=== PATIENT | female | born 1965 | race Caucasian/White ===

== ENCOUNTER → 2016-09-15 | Outpatient (CLI) | payer OTHER ==
[~2016-09-15] MED LIST: DOCU1CAP39 PO; HYDR-3516 PO; IBUP-232 PO; LORTA5 PO; MAXZTAB PO; PRIL20TA2 PO; Z.0.NO CURRENT MEDS; ZOFR4TAB3 SL
[2016-09-15 10:32] LABS: AUTOMATED NEUTROPHIL # 5.1 TH/MM3 (1.8-7.7); BASOPHIL # 0.1 TH/MM3 (0-0.2); BASOPHIL % 0.7 % (0.0-2.0); EOSINOPHIL # 0.3 TH/MM3 (0-0.4); EOSINOPHIL % 3.1 % (0.0-4.0); HEMATOCRIT 35.6 % (35.0-46.0); HEMO FLAGS DIFF FINAL; LYMPH % 31.4 % (9.0-44.0); LYMPHOCYTE # 2.9 TH/MM3 (1.0-4.8); MEAN CORPUSCULAR HEMOGLOBIN 29.5 PG (27.0-34.0); MEAN CORPUSCULAR HGB CONC 33.9 % (32.0-36.0); MONO % 8.3 % (0.0-8.0); NEUT % 56.5 % (16.0-70.0); PLATELET COUNT 278 TH/MM3 (150-450); RED BLOOD COUNT 4.09 MIL/MM3 (4.00-5.30); WHITE BLOOD COUNT 9.1 TH/MM3 (4.0-11.0)
[2016-09-15 10:37] LABS: BLOOD, URINE SMALL (NEG); GLUCOSE,URINE NEG (NEG); KETONE, URINE NEG (NEG); NITRITE,URINE NEG (NEG); PH, URINE 6.5 (5.0-8.5); URINE COLOR YELLOW (YELLW/STRAW)
[2016-09-15 12:04] LABS: BICARBONATE 25.2 MEQ/L (21.0-32.0); POTASSIUM 3.4 MEQ/L (3.5-5.1)
--- NOTE | 2016-09-16 14:01 | EKG ---
Date Performed: 09/15/2016 Time Performed: 10:17:37 PTAGE: 51 years EKG: Sinus rhythm POSSIBLE LEFT ATRIAL ENLARGEMENT Since previous tracing, no significant change noted BORDERLINE ECG PREVIOUS TRACING : 05/01/2011 11.00.30 DOCTOR: Stefan Hussein Interpretating Date/Time 09/16/2016 13:59:32
== END ==
LOC: CPRE 09:53
PROVIDERS: ATTEND Obstetrics & Gynecology
DX: Z01.812 Encounter for preprocedural laboratory examination (principal); Z01.810 Encounter for preprocedural cardiovascular examination; N92.0 Excessive and frequent menstruation with regular cycle; D21.9 Benign neoplasm of connective and other soft tissue, unspecified; R94.31 Abnormal electrocardiogram [ECG] [EKG]
CPT/HCPCS: 80048; 81003; 84703; 85025; 86850; 86900; 86901; 93005

== ENCOUNTER 2016-09-16 05:58 | Observation (INO) | payer OTHER ==
[~2016-09-16] VITALS: Ht 167.6 cm; Wt 83.7 kg
[~2016-09-16 05:58] MED LIST changes: -DOCU1CAP39 PO; -HYDR-3516 PO; -IBUP-232 PO; -LORTA5 PO; -Z.0.NO CURRENT MEDS; -ZOFR4TAB3 SL
[2016-09-16] MEDS ORDERED: CLINDAMYCIN 600 MG/NS 100 ML IV SCH ×2 (06:15)
[2016-09-16] MEDS ORDERED: GENTAMICIN 80 MG PREMIX 100 ML IV SCH (06:15)
[2016-09-16] MEDS ORDERED: INSULIN HUMAN REGULAR 1,000 UNITS/10 ML VIAL SQ PRN (06:30)
[2016-09-16] MEDS ORDERED: CHLORHEXIDINE GLUCONATE 2 % 1 PACK (2 CLOTHS) TOPICAL PRN (06:30)
[2016-09-16] MEDS ORDERED: POVIDONE IODINE 5% (ANTISEPSIS KIT) 4 APPLICATIONS EACH NARE PRN (06:30)
[2016-09-16] MEDS ORDERED: SODIUM CHLORID 0.9% 500 ML IV PRN (06:30)
[2016-09-16] MEDS ORDERED: METOPROLOL TARTRATE 25 MG TAB PO PRN (06:30)
[2016-09-16 06:39] VITALS: BP 135/90; PULSE 78; RESP 18; TEMP 98.5; O2SAT 97
[2016-09-16] MEDS: LACTATED RINGER'S 1000 ML IV PRN ×2 (06:42→12:26)
[2016-09-16] MEDS ORDERED: SODIUM CHLORIDE 0.9% INJ 100 ML ONE (06:48)
[2016-09-16] MEDS ORDERED: APREPITANT 40 MG CAP ONE (07:05)
[2016-09-16] MEDS ORDERED: DEXAMETHASONE SOD PHOS 4 MG/ML VIAL ONE (07:07)
[2016-09-16] MEDS ORDERED: SCOPOLAMINE 1.5 MG PATCH ONE (07:10)
[2016-09-16] MEDS ORDERED: MIDAZOLAM HCL 2 MG/2 ML VIAL ONE (07:16)
[2016-09-16] MEDS ORDERED: diphenhydrAMINE HCL 50 MG/ML VIAL ONE (07:18)
[2016-09-16] MEDS ORDERED: BUPIVACAINE/EPINEPHRINE 0.25% PF 30 ML VIAL INFIL ONE (08:30)
[2016-09-16] MEDS ORDERED: IBUPROFEN 600 MG TAB PO PRN (09:45)
[2016-09-16] MEDS ORDERED: diphenhydrAMINE HCL 50 MG/ML VIAL IV PRN (09:45)
[2016-09-16] MEDS ORDERED: NALOXONE HCL 0.4 MG/ML AMP IV PRN (09:45)
[2016-09-16] MEDS ORDERED: ZOLPIDEM TARTRATE 5 MG TAB PO PRN (09:45)
[2016-09-16] MEDS ORDERED: SODIUM CHLORIDE 0.9% FLUSH 10 ML FLUSH IV FLUSH PRN (09:45)
[2016-09-16] MEDS ORDERED: ONDANSETRON HCL 4 MG/2 ML VIAL IVP PRN (09:45)
[2016-09-16] MEDS: LACTATED RINGER'S 1000 ML INJ 1,000 ML IV SCH ×2 (10:00→18:05)
[2016-09-16] MEDS ORDERED: DO NOT ADM ANY ANTICOAGULANT DRUGS PRN (10:01)
[2016-09-16] MEDS ORDERED: fentaNYL CITRATE 250 MCG/5 ML AMP ONE (10:09)
[2016-09-16] MEDS: DOCUSATE SODIUM 100 MG CAP PO SCH ×2 (10:15→20:09)
[2016-09-16] MEDS: HYDROmorphone HCL PCA 6 MG/30 ML IV SCH (10:21)
[2016-09-16] MEDS ORDERED: *ONDANSETRON 4 MG VIAL PERIprocedural Use ONLY ONE (10:30)
[2016-09-16] MEDS ORDERED: DIMETHICONE/OXYBENZONE/PADMIATE LIP BALM 4.25 GM TOPICAL ONE (10:50)
[2016-09-16] MEDS ORDERED: KETOROLAC TROMETHAMINE 60 MG/2 ML (IM) VIAL IM ONE (12:00)
[2016-09-16] MEDS ORDERED: ONDANSETRON HCL 4 MG/2 ML VIAL IV PUSH ONE (12:00)
[2016-09-16] MEDS ORDERED: PROPOFOL 200 MG/20 ML AMP IV ONE (12:00)
[2016-09-16] MEDS ORDERED: NEOSTIGMINE 3 MG/3 ML SYR IV ONE (12:00)
[2016-09-16] MEDS ORDERED: LACTATED RINGER'S 1000 ML INJ 1,000 ML IV ONE (12:00)
[2016-09-16 12:30] VITALS: BP 109/63; PULSE 86; RESP 20; TEMP 97.9; O2SAT 96
[2016-09-16] MEDS: PCA - TOTAL MG DILAUDID DELIVERED PER SHIFT OTHER SCH ×2 (13:43→23:12)
[2016-09-16 16:00] VITALS: BP 107/63; PULSE 90; RESP 18; TEMP 97.1; O2SAT 96
--- NOTE | 2016-09-16 17:58 | MP ---
cc: SANDRA STEWARD (fax please [phone]) DATE OF SURGERY 09/16/16 PREOPERATIVE DIAGNOSIS Menorrhagia, pelvic pain, fibroid uterus. POSTOPERATIVE DIAGNOSIS Menorrhagia, pelvic pain, fibroid uterus. PROCEDURE 1. Examination under anesthesia, 2. Laparoscopic-assisted vaginal hysterectomy, bilateral salpingectomy, 3. Cystoscopy. SURGEON Dr. Merlyn Steward BUSINESS MACHINE OPERATOR [employer] Muniz ANESTHESIA General endotracheal anesthesia, Dr. Boone. FLUIDS 1000 mL crystalloid ESTIMATED BLOOD LOSS 100 mL URINE OUTPUT 700 mL clear yellow at the end of the procedure. FINDINGS Uterus was approximately 12 weeks on examination under anesthesia. There were no adnexal masses. At laparoscopy, the ovaries appeared normal. PROCEDURE IN DETAIL The patient was taken to the operating room where general anesthesia was found to be adequate. She was then prepped and draped in the normal sterile fashion in the dorsal lithotomy position. A Hernandez catheter was inserted into the urinary bladder using sterile technique. A weighted speculum was placed in the vagina. A Single-tooth tenaculum was applied to the anterior lip of the cervix. A suture was placed through the anterior lip of the cervix and the tenaculum was removed. A medium V-Care uterine manipulator was placed through the cervix. The balloon was inflated. The cups were positioned. The speculum was removed. The gloves were changed and attention was turned to the abdominal portion of the procedure. A 5 mm incision was made just above the umbilicus and a 5-mm trocar and camera were inserted into the abdominal cavity under direct visualization. The abdomen was insufflated with approximately 3.5 liters of CO2 gas. Two 5 mm trocars were placed in the right and left lower quadrants under direct visualization. The left round ligament was identified, grasped with the Harmonic scalpel and transected. The bladder flap was created from the left side using the harmonic scalpel. The right round ligament was identified, grasped with the Harmonic scalpel, transected and the bladder flap was created from the right side using the harmonic scalpel. The bladder was then gently dissected off the anterior surface of the uterus and cervix. The fallopian tubes were then transected from the broad ligaments using the harmonic scalpel. The utero-ovarian ligaments were transected using the harmonic scalpel. The right broad ligament, cardinal ligament and uterine artery were then transected using the harmonic scalpel. The left broad ligament, cardinal ligament and uterine arteries were transected using the Harmonic scalpel down to the level of cervix. The V-Care was used as a guide to incise the anterior vaginal mucosa. This incision was extended circumferentially using the harmonic scalpel and hemostasis was noted from all of the pedicles. Suction irrigation was performed. The specimen was removed vaginally and sent to pathology. The vaginal cuff was then closed vaginally with a running suture of 0 Vicryl. Hemostasis was assured. The instruments were removed from the abdominal cavity by the librarian assistant. The trocars were removed. The skin incisions were closed with 4-0 Monocryl. The Hernandez catheter was used to instill approximately 350 mL of saline into the bladder. The Hernandez catheter was removed. Cystoscopy was performed and urine was noted to be effluxing from both of the ureteral meatuses. The cystoscope was removed. The Hernandez catheter was replaced. The patient was awaken from anesthesia and transferred to recovery room in stable condition. The sponge, lap, needle and instrument counts were correct. Pathology was uterus, cervix and fallopian tubes. MD ANDRADE Wheeler/ /9:49 AM /5:49 PM
[2016-09-16 20:00] VITALS: BP 114/63; PULSE 76; RESP 16; TEMP 97.1; O2SAT 95
[2016-09-16] MEDS: SODIUM CHLORIDE 0.9% FLUSH 10 ML FLUSH IV FLUSH SCH (20:21)
[2016-09-17] VITALS: BP 109/78; PULSE 70; RESP 16; TEMP 96.2; O2SAT 97
[2016-09-17] MEDS: LACTATED RINGER'S 1000 ML INJ 1,000 ML IV SCH ×2 (01:43→10:29)
[2016-09-17 04:00] VITALS: BP 114/70; PULSE 78; RESP 16; TEMP 97; O2SAT 94
[2016-09-17] MEDS: HYDROmorphone HCL PCA 6 MG/30 ML IV SCH (04:30)
[2016-09-17] MEDS: PCA - TOTAL MG DILAUDID DELIVERED PER SHIFT OTHER SCH (04:34)
[2016-09-17] MEDS ORDERED: ACETAMINOPHEN/HYDROcodone 325 MG/5 MG TAB PO PRN (07:00)
[2016-09-17 07:51] LABS: AUTOMATED NEUTROPHIL # 10.4 TH/MM3 (1.8-7.7); BASOPHIL % 0.3 % (0.0-2.0); EOSINOPHIL % 0.1 % (0.0-4.0); HEMO FLAGS DIFF FINAL; LYMPH % 15.9 % (9.0-44.0); LYMPHOCYTE # 2.1 TH/MM3 (1.0-4.8); MEAN CELL VOLUME 86.5 FL (80.0-100.0); MEAN CORPUSCULAR HEMOGLOBIN 29.4 PG (27.0-34.0); MONO % 6.2 % (0.0-8.0); NEUT % 77.5 % (16.0-70.0); PLATELET COUNT 231 TH/MM3 (150-450); RED BLOOD COUNT 3.35 MIL/MM3 (4.00-5.30); WHITE BLOOD COUNT 13.4 TH/MM3 (4.0-11.0)
[2016-09-17 08:00] VITALS: BP 123/75; PULSE 75; RESP 18; TEMP 97.6; O2SAT 93
--- NOTE | 2016-09-17 08:09 | HHI.PR ---
Subjective Remarks Doing well, pain is well controlled, tolerating liquids Objective Vital Signs Vital Signs Date Time Temp Pulse Resp B/P Pulse Ox O2 Delivery O2 Flow Rate FiO2 09/17/16 04:34 16 09/17/16 04:30 16 09/17/16 04:00 97.0 78 16 114/70 94 09/17/16 00:00 96.2 70 16 109/78 97 09/16/16 23:12 16 09/16/16 20:00 97.1 76 16 114/63 95 09/16/16 16:00 97.1 90 18 107/63 96 09/16/16 13:43 16 09/16/16 12:30 97.9 86 20 109/63 96 09/16/16 11:30 98.4 84 17 114/69 95 Room Air 09/16/16 11:00 82 15 116/61 98 Nasal Cannula 2 09/16/16 10:45 79 14 119/60 100 Nasal Cannula 2 09/16/16 10:30 85 17 128/58 99 Nasal Cannula 2 09/16/16 10:21 17 09/16/16 10:15 76 17 122/71 99 Nasal Cannula 2 09/16/16 10:00 98.4 88 17 125/70 94 Nasal Cannula 2 I/O 09/16/16 09/16/16 09/16/16 09/17/16 09/17/16 09/17/16 07:00 15:00 23:00 07:00 15:00 23:00 Intake Total 1100 ml 250 ml 2730 ml Output Total 750 ml 300 ml 2650 ml Balance 350 ml -50 ml 80 ml Intake Oral 250 ml 250 ml IV Total 2480 ml Other 1100 ml Output Urine Total 600 ml 300 ml 2650 ml Estimated Blood Loss 150 ml # Bowel Movements 0 0 Result Diagram: 09/17/16 0717 Objective Remarks Chest is clear, regular rate and rhythm. Abdomen is soft and non-distended. Incisions are clean and dry. Ext no CCE. A/P Assessment and Plan Post Op Day 1 Doing well Home today and return to office in two weeks. Michelle Yang MD Sep 17, 2016 08:09
[2016-09-17] MEDS ORDERED: HYDR-3516 PO (08:12)
[2016-09-17] MEDS ORDERED: IBUP-232 PO (08:12)
[2016-09-17] MEDS ORDERED: DOCU1CAP39 PO (08:12)
--- NOTE | 2016-09-17 08:13 | HHI.DCPOC ---
Discharge Care Plan Your Health Problems Are: Pelvic pain Report Symptoms to Your Doctor -Temperature above 100.5 degrees -Redness, of incision or excessive or foul smelling drainage -Unusual pain or calf pain -Increased vaginal bleeding -Painful or difficulty urinating -Feelings of extreme sadness or anxiety after 2 weeks Goals to Promote Your Health * To prevent worsening of your condition and complications * To maintain your health at the optimal level Directions to Meet Your Goals Take your medications as prescribed Follow your dietary instruction Follow activity as directed Ensure plenty of rest for recovery Drink fluids for hydration Keep your appointments as scheduled Take your immunizations and boosters as scheduled If your symptoms worsen call your PCP, if no PCP go to Urgent Care Center or Emergency Room Smoking is Dangerous to Your Health. Avoid second hand smoke Call the 24-hour crisis hotline for domestic abuse at Michelle Yang MD Sep 17, 2016 08:12
[2016-09-17] MEDS: SODIUM CHLORIDE 0.9% FLUSH 10 ML FLUSH IV FLUSH SCH (09:00)
[2016-09-17] MEDS: DOCUSATE SODIUM 100 MG CAP PO SCH (09:13)
[2016-09-17 11:45] VITALS: BP 128/77; PULSE 73; RESP 18; TEMP 98; O2SAT 95
== END 2016-09-17 15:45 | disposition home or self-care (01) ==
LOC: HSDC 05:58 → HSDI 09:42 → HOCB 11:50
PROVIDERS: ADMIT Obstetrics & Gynecology; ATTEND Obstetrics & Gynecology
DX: R10.2 Pelvic and perineal pain (principal); N92.0 Excessive and frequent menstruation with regular cycle; N80.0 Endometriosis of uterus; D25.9 Leiomyoma of uterus, unspecified; N88.8 Other specified noninflammatory disorders of cervix uteri; I10 Essential (primary) hypertension; K21.9 Gastro-esophageal reflux disease without esophagitis
CPT/HCPCS: 00944; 58552; 82565; 85025; 88307; 94150; G0378; J1100; J1170; J1200; J1580; J1885; J2250; J2405; J2710; J3010; J7120; J8501; S2900